=== PATIENT | female | born 2000 | race Caucasian/White ===

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

== ENCOUNTER 2022-04-20 22:46 | Emergency (ER) | payer MEDICAID ==
[~2022-04-20] VITALS: Ht 154.9 cm; Wt 84.9 kg
[~2022-04-20 22:46] MED LIST: ACET-9525 PO; LACT1.4C PO; LEVO750T2 PO
[2022-04-20 23:07] VITALS: BP 137/67
--- NOTE | 2022-04-20 23:09 | NUR ---
PT TO LOBBY
--- NOTE | 2022-04-21 00:38 | NUR ---
PT TAKEN TO BED 7
--- NOTE | 2022-04-21 00:42 | NUR ---
PATIENT PRESENTS TO ED WITH LEFT EAR PAIN . PT STATES PAIN X3 DAYS. DENIES RECENT SWIMMING. ADMITS TO USE OF Q TIPS. NO DRAINAGE PRESENT. HEARING INTACT. DENIES N/V/D; SKIN IS PINK/WARM/DRY; AAOX4 WITH EVEN AND STEADY GAIT; LUNGS CLEAR BL; HR EVEN AND REGULAR; PT DENIES ANY FEVER, CP, SOB, OR COUGH AT THIS TIME; PATIENT STATES PAIN OF 0/10 AT THIS TIME; VSS; PATIENT POSITIONED FOR COMFORT; HOB ELEVATED; BEDRAILS UP X2; BED DOWN. ER MD MADE AWARE OF PT STATUS.
--- NOTE | 2022-04-21 01:50 | NUR ---
DR. LIZAMA AT BEDSIDE FOR MSE
--- NOTE | 2022-04-21 03:09 | NUR ---
IRRIGATION DONE. DR. LIZAMA AT BEDSIDE REASSESSING PT
[2022-04-21] MEDS ORDERED: CIPR7.5S OT (03:14)
[2022-04-21 03:19] VITALS: BP 128/64
--- NOTE | 2022-04-21 03:19 | NUR ---
Patient discharged with v/s stable. Written and verbal after care instructions given and explained. Patient verbalized understanding. Ambulatory with steady gait. All questions addressed prior to discharge. Advised to follow up with PMD.
== END 2022-04-21 03:19 | disposition home or self-care (01) ==
LOC: MED 22:46
DX: H61.22 Impacted cerumen, left ear (principal); Z79.899 Other long term (current) drug therapy
CPT/HCPCS: 99283